=== PATIENT | female | born 1965 | race Caucasian/White ===

== ENCOUNTER 2016-08-10 05:13 | Inpatient (IN) | payer OTHER ==
[~2016-08-10] VITALS: Ht 157.5 cm; Wt 53.1 kg
[2016-08-10] VITALS (15 sets, daily range): BP systolic 97–138; BP diastolic 53–81
[~2016-08-10 05:13] MED LIST: ALPRAZOLAM0.5 MG PO; LAMOTRIGINE100 M1 PO; NORCO 10-325 T1 EACH ORAL; OXYCODONE HCL30 MG ORAL
[2016-08-10] MEDS ORDERED: Thrombin 5000 units TOPIC ONE (06:15)
[2016-08-10] MEDS ORDERED: Surgicel 4in x 8in TOPIC ONE (06:16)
[2016-08-10] MEDS ORDERED: Thrombin 5000 units spray kit TOPIC ONE (06:16)
[2016-08-10] MEDS ORDERED: Gelfoam Absorbable 1gm powder pkt TOPIC ONE (06:16)
[2016-08-10] MEDS ORDERED: Bupivacaine w/Epi 0.5% 30ml Vial INJ ONE (06:16)
[2016-08-10] MEDS ORDERED: Bacitracin 50000 Units Vial ONE (06:20)
[2016-08-10] MEDS ORDERED: Propofol 10mg/ml 20ml IV ONE (07:00)
[2016-08-10] MEDS ORDERED: Zemuron 50mg/5ml Inj IV ONE (07:00)
[2016-08-10] MEDS ORDERED: Midazolam 2mg/2ml Inj ONE (07:00)
[2016-08-10] MEDS ORDERED: Propofol 10mg/ml 100ml btl IV ONE (07:00)
[2016-08-10] MEDS ORDERED: HYDROmorphone 1mg/ml Carpuject ONE (07:00)
[2016-08-10] MEDS ORDERED: LR 1000ml ONE (07:00)
[2016-08-10] MEDS ORDERED: fentaNYL 100 mcg/2 mL IV ONE (07:00)
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
[2016-08-10] MEDS ORDERED: LR 1000ml 1,000 ML IVLG SCH (08:17)
--- NOTE | 2016-08-10 08:24 | Anethesia Preoperative Eval ---
Anesthesia Pre-op PMH/ROS General Date of Evaluation: Aug 10, 2016 Time of Evaluation: 06:55 Anesthesiologist: Jaja ASA Score: ASA 2 Mallampati Score Class I : Soft palate, uvula, fauces, pillars visible Class II: Soft palate, uvula, fauces visible Class III: Soft palate, base of uvula visible Class IV: Only hard plate visible Mallampati Classification: Class II Surgeon: Shon Diagnosis: Cervical radiculopathy secondary to trauma Surgical Procedure: ACDFC4-5, C5-6 Anesthesia History: emergence delirium - Extreme emotional state Family History: no anesthesia problems Allergies: Coded Allergies: No Known Allergies (Unverified , 08/07/16) Past Medical History Cardiovascular: Denies: CAD, HTN, [place], arrhythmia, other, valve dz Pulmonary: Denies: COPD, CEDRICK, asthma, other Gastrointestinal/Genitourinary: Reports: other - Hep C, Denies: CRI, ESRD, GERD Neurologic/Psychiatric: Reports: depression/anxiety, Denies: CVA, TIA, dementia, other Endocrine: Denies: DM, hypothyroidism, other, steroids HEENT: Denies: KALIS[place]L (L), K[place]L (R), cataract (L), cataract (R), glaucoma, other Hematology/Immune: Denies: DVT, anemia, bleeding disorder, other Musculoskeletal/Integumentary: Denies: DDD, DJD, OA, RA, edema, other PMH Narrative: Hep C, anxiety PSxH Narrative: BTL, breast aug, CTR Anesthesia Pre-op Phys. Exam Physician Exam Last Vital Signs Date Time Temp Pulse Resp B/P Pulse Ox O2 Delivery O2 Flow Rate FiO2 08/10/16 05:50 97.8 88 18 114/62 99 Room Air Constitutional: NAD Neurologic: CN 2-12 intact Cardiovascular: RRR, no M/R/G Respiratory: CTA Gastrointestinal: S/NT/ND Airway Exam Mallampati Score: Class II MO: full ROM: full Teeth: intact Anesthesia Pre-op A/P Labs Wnl Studies Pre-op Studies: EKG - NSR Risk Assessment & Plan Assessment: Traumatic cervical radiculopathy Plan: GETA, glide scope intubation Status Change Before Surgery: No Pre-Antibiotics Drug: Ancef Given Within 1 Hr of Incision: Yes Time Given: 07:15 KUSH TREVIÑO M.D. Aug 10, 2016 08:24
--- NOTE | 2016-08-10 08:25 | Immediate Post-Op Evaluation ---
Immediate Post-Op Evalulation Immediate Post-Op Evalulation Procedure: ACDF C4-5, C5-6 Date of Evaluation: Aug 10, 2016 Time of Evaluation: 09:45 IV Fluids: 1300 Estimated Blood Loss: 35 Urinary Output: 100 Blood Pressure Systolic: 106 Blood Pressure Diastolic: 53 Pulse Rate: 88 Respiratory Rate: 18 O2 Sat by Pulse Oximetry: 97 Temperature (Fahrenheit): 98.5 Pain Score (1-10): 0 Nausea: No Vomiting: No Complications No complication Patient Status: reacts, patent, extubated, none Hydration Status: adequate Drug: Ancef Given Within 1 Hr of Incision: Yes Time Given: 07:15 KUSH TREVIÑO M.D. Aug 10, 2016 08:25
[2016-08-10] MEDS ORDERED: Labetalol 5mg/ml 20ml vial IV PRN (08:30)
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
[2016-08-10] MEDS ORDERED: Acetaminophen 650 MG SUPP RECTAL PRN (09:45)
[2016-08-10] MEDS: Meperidine 25mg/ml Inj IV PRN ×2 (09:45→10:20)
[2016-08-10] MEDS: LORazepam Inj 2mg/ml 1ml IV PRN ×4 (09:54→11:20)
[2016-08-10] MEDS: Hydromorphone 0.5mg/0.5ml inj IVP PRN ×4 (10:10→11:19)
[2016-08-10] MEDS ORDERED: LR 1000ml 1,000 ML IV SCH (10:17)
[2016-08-10] MEDS ORDERED: Rate Change PCA 1 Each MISC PRN (11:00)
[2016-08-10] MEDS ORDERED: PCA HYDROmorphone 1mg/ml 30 ML IV PRN (11:00)
[2016-08-10] MEDS ORDERED: Naloxone 0.4mg/ml Inj IVP PRN (11:00)
--- NOTE | 2016-08-10 12:30 | Diagnostic Imaging Report ---
Indication: PAIN Technique: Digital intraoperative images Comparison: None Findings: Initial intraoperative image demonstrates a needle projected at the expected level of the C5-6 disc. Subsequent images document placement of anterior fusion hardware bridging C4-C6, disc spacers at C5-6 and C4-5 Impression: Intraoperative imaging, as described
[2016-08-10] MEDS ORDERED: DiphenhydrAMINE 50mg/ml Inj IVP PRN (13:00)
[2016-08-10] MEDS: LORazepam 1mg tab ORAL PRN ×2 (13:39→20:05)
[2016-08-10] MEDS: ceFAZolin sod 1 GM in D5W 55 ML IV SCH ×2 (15:00→16:02)
--- NOTE | 2016-08-10 17:27 | Operative Note - Dictated ---
DATE OF OPERATION: 08/10/2016 SURGEON: Nazario Menendez M.D. BUTTON DECORATING MACHINE OPERATOR: Karla Mejias ANESTHESIOLOGIST: Smith Wilkinson M.D. ANESTHESIA: General endotracheal with arterial blood pressure monitoring. PREOPERATIVE DIAGNOSES: Cervical disc disease at C3-C4 and C4-C5 with significant herniations effacing and compressing the cervical cord. There was evidence of segmental instability at C4-C5 on flexion-extension films. POSTOPERATIVE DIAGNOSES: Cervical disc disease at C3-C4 and C4-C5 with significant herniations effacing and compressing the cervical cord. There was evidence of segmental instability at C4-C5 on flexion-extension films. OPERATIVE PROCEDURE: Right anterior approach to the cervical spine with mobilization of the carotid sheath, trachea, and esophagus to reach anterior plane of the spine and anterior annulotomy, partial vertebrectomy, and nuclear diskectomy was then performed initially at C5-C6 and secondarily at C4-C5. Once the anterior anulus was removed the cartilaginous end plate and anterior osteophytes were removed with a Midas using an AMA bur and with a 2 and 3 millimeter Kerrison. The cartilage endplate was then removed and the disk was dissected posteriorly until reaching the posterior row of osteophytes on the vertebral body and the posterior longitudinal ligament and border of the disk. Midas was used to remove these posterior osteophytes and a small curette was used to then release the edge of the disk and PLL. A 2 mm Kerrison was used to remove the posterior osteophytes extending into the canal in both the right and left foramen. Both foramina were opened widely. The cervical cord was uncovered so that it could be seen pulsating freely with respiration. There was no from the body of C4-C5 or C6 on the cord after osteophytic removal. The process at C4-C5 was similar with removal of the anterior anulus, removal of osteophytes and then using sequentially larger to smaller straight and angled curettes to reach the posterior aspect of the vetrebral body and the posterior disk margin. The PLL and posterior disk was released and a 2 mm Kerrison was used along with the Midas to remove the osteophytes. A wide foraminotomy was done both on the right and left at C4-C5. The spacers were then templated to 7 mm and a 7 millimeter lordotic fibula autogenous graft was then placed at each level. The grafts were lordotic and were 12 in depth in 18 in width, they were 7 mm in height, there were tapped just below the anterior edge of the vertebral body and a 35 millimeter compression plate was then overlaid. X-rays were taken to determine position of the plate and adequacy of position the graft. The spine was well aligned with good lordosis, good reconstitution of disk height and clearly open foramina. There was no remnants of the vertebral body osteophytes posteriorly on AP the plate was well centered, six 13 mm compression screws were then placed, two into the body of C4, two into C5, and two into C6. Each was well positioned with good contact and good bite strength. The were placed to prevent screws backing out and final position was checked. There was not significant bleeding. Retractors were removed. The carotid sheath was checked. Trachea and esophagus were checked. The wound was copiously irrigated and the layers were closed including the platysma, subcutaneous and skin. The patient was then placed in a compression bandage and returned to recovery room in good condition. Nazario Menendez M.D. DR: Mikey JOB#: [id number] CC:
[2016-08-10] MEDS ORDERED: EMLA 5gm tube TOPIC ONE (18:15)
[2016-08-10] MEDS: PCA shift volume MISC SCH (19:00)
[2016-08-10] MEDS ORDERED: Cephalexin 500mg cap ORAL SCH (21:00)
[2016-08-10] MEDS: Cephalexin 500mg cap ORAL SCH (22:59)
[2016-08-11] MEDS: LORazepam 1mg tab ORAL PRN ×2 (00:05→04:15)
[2016-08-11 00:19] VITALS: BP 132/70
[2016-08-11 04:34] VITALS: BP 130/60
[2016-08-11] MEDS: PCA shift volume MISC SCH (06:34)
[2016-08-11 08:00] VITALS: BP 130/71
[2016-08-11] MEDS ORDERED: Lidocaine 1% Plain 30 ml INJ ONE (08:00)
[2016-08-11] MEDS ORDERED: Sodium Bicarbonate 8.4% 50ml Inj IV ONE (08:00)
[2016-08-11] MEDS ORDERED: Heparin 2000 units/Ns 1000ml INJ ONE (08:00)
[2016-08-11] MEDS: Cephalexin 500mg cap ORAL SCH ×2 (08:17→12:58)
--- NOTE | 2016-08-11 09:08 | History & Physical ---
History and Physical History & Physicial 4-17 HP reviewed care noted d/w RN poor IV access PILAR TAYLOR Aug 11, 2016 09:08
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
[2016-08-11] MEDS ORDERED: Norco 7.5mg/325mg tab ORAL PRN ×2 (09:15)
[2016-08-11] MEDS ORDERED: Naloxone 0.4mg/ml Inj IVP PRN (11:00)
[2016-08-11 12:00] VITALS: BP 114/67
[2016-08-11 12:19] VITALS: BP 120/70
--- NOTE | 2016-08-11 12:19 | 48 Hour Post Anesthesia Eval ---
Post Anesthesia Evaluation Procedure: ACDF C4-5, C5-6 Date of Evaluation: Aug 11, 2016 Time of Evaluation: 12:18 Blood Pressure Systolic: 120 0: 70 Pulse Rate: 73 Respiratory Rate: 20 Temperature (Fahrenheit): 97.2 O2 Sat by Pulse Oximetry: 98 Airway: patent Nausea: No Vomiting: No Pain Intensity: 2 Hydration Status: adequate Cardiopulmonary Status: Stable Mental Status/LOC: patient returned to baseline Follow-up Care/Observations: na Post-Anesthesia Complications: na Follow-up care needed: N/A ALETHA SERRATO M.D. Aug 11, 2016 12:19
[2016-08-12] MEDS ORDERED: HYDROmorphone 1mg/ml Carpuject SUBQ PRN (11:00)
[2016-08-12] MEDS ORDERED: HYDROmorphone 1mg/ml Carpuject IVP PRN (11:00)
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
== END 2016-08-11 13:36 | disposition home or self-care (01) | DRG 473 ==
LOC: SDSOVERFLO 05:13 → 3E 11:49
PROC: 0RG2070 Fusion of 2 or more Cervical Vertebral Joints with Autologous Tissue Substitute, Anterior Approach, Anterior Column, Open Approach (ICD-10-PCS; principal; 2016-08-10 07:00)
DX: M50.121 Cervical disc disorder at C4-C5 level with radiculopathy (principal); B19.20 Unspecified viral hepatitis C without hepatic coma; M53.2X2 Spinal instabilities, cervical region; V89.2XXS Person injured in unspecified motor-vehicle accident, traffic, sequela; F41.8 Other specified anxiety disorders
CPT/HCPCS: 36415; 72040; 76001; 86850; 86900; 86901; 87081; 94003; 94150; J2180; J2250; J2405